=== PATIENT | male | born 1990 | race Caucasian/White ===

== ENCOUNTER 2016-07-21 17:57 | Emergency (ER) | payer OTHER ==
[~2016-07-21] VITALS: Ht 170.2 cm; Wt 71.0 kg
[~2016-07-21 17:57] MED LIST: CLONIDINE HCL0.1 MG PO; FLEXERIL10 MG PO; NAPROXEN500 MG PO; NOHOMEMEDS; TRAZODONE HCL50 MG PO
[2016-07-21 18:53] LABS: HEMATOCRIT 46.9 % (38.0-50.0); MCH 30.7 PG (29.0-34.0); MCHC 34.5 G/DL (30.0-36.0); MEAN PLAT.VOLUME 9.5 uM^3 (9.0-12.4); PLATELET COUNT 296 K/uL (156-360); RBC DIS.WIDTH-SD 42.4 % (39-53); RED BLOOD COUNT 5.27 M/uL (4.00-5.50); WHITE BLOOD COUNT 13.2 K/uL (4.1-10.2)
[2016-07-21 19:04] LABS: CHLORIDE 109 mEq/L (99-109); POTASSIUM 4.2 mEq/L (3.7-5.4); SODIUM 139 mEq/L (136-147)
[2016-07-21 19:06] LABS: GLUCOSE 164 mg/dL (70-99)
[2016-07-21 19:08] LABS: ANION GAP 10 MEQ/L (2-14)
[2016-07-21 19:09] LABS: SERUM ETHYL ALCOHOL < 10 mg/dL
[2016-07-21 19:10] LABS: GFR ESTIMATE (CALCULATED) > 59 mL/min/
[2016-07-21 19:12] LABS: UREA NITROGEN (BUN) 12 mg/dL (9-23)
[2016-07-21 19:13] LABS: SALICYLATE < 5.0 MG/DL (15-30)
[2016-07-21] MEDS ORDERED: NARCAN4 MG NS (19:30)
[2016-07-21 21:43] LABS: ADD MEDTOX COMMENT Y; AMPHETAMINE NEGATIVE (500 ng/mL); BARBITURATES NEGATIVE (200 ng/mL); BENZODIAZEPINES NEGATIVE (150 ng/mL); COCAINE NEGATIVE (150 ng/mL); INTERNAL CONTROLS VALID? YES; METHADONE NEGATIVE (200 ng/mL); METHAMPHETAMINE NEGATIVE (500 ng/mL); OPIATES (MORPHINE) PRESUMPTIVE POSITIVE (100 ng/mL); OXYCODONE NEGATIVE (100 ng/mL); PHENCYCLIDINE NEGATIVE (25 ng/mL); PROPOXYPHENE NEGATIVE (300 ng/mL); THC CANNABINOIDS PRESUMPTIVE POSITIVE (50 ng/mL); TRICYCLIC ANTIDEPRESSANTS NEGATIVE (300 ng/mL)
[2016-07-21 21:58] VITALS: BP 117/74
[2016-07-21 22:13] LABS: MARIJUANA QUANT VALUE 0 NG/ML
== END 2016-07-21 22:00 | disposition home or self-care (01) ==
LOC: EME 17:57
PROVIDERS: Physician Assistant Medical
DX: T40.1X1A Poisoning by heroin, accidental (unintentional), initial encounter (principal); F11.20 Opioid dependence, uncomplicated; F11.24 Opioid dependence with opioid-induced mood disorder; F17.200 Nicotine dependence, unspecified, uncomplicated; Z88.2 Allergy status to sulfonamides
CPT/HCPCS: 80048; 84999; 85027; 90837; 99281; 99285; G0480

== ENCOUNTER 2016-09-16 20:32 | Emergency (ER) | payer OTHER ==
[~2016-09-16] VITALS: Ht 170.2 cm; Wt 76.3 kg
[~2016-09-16 20:32] MED LIST changes: +NARCAN4 MG NS
[2016-09-17 00:24] LABS: MCH 30.2 PG (29.0-34.0); MCHC 33.1 G/DL (30.0-36.0); MCV 91.3 FL (86-99); MEAN PLAT.VOLUME 8.8 uM^3 (9.0-12.4); PLATELET COUNT 262 K/uL (156-360); RBC DIS.WIDTH-CV 13.1 % (11.8-14.6); RBC DIS.WIDTH-SD 43.9 % (39-53); WHITE BLOOD COUNT 8.6 K/uL (4.1-10.2)
[2016-09-17 00:32] LABS: CHLORIDE 106 mEq/L (99-109); POTASSIUM 4.4 mEq/L (3.7-5.4); SODIUM 141 mEq/L (136-147)
[2016-09-17 00:34] LABS: GLUCOSE 93 mg/dL (70-99)
[2016-09-17 00:35] LABS: ANION GAP 11 MEQ/L (2-14)
[2016-09-17 00:38] LABS: GFR ESTIMATE (CALCULATED) > 59 mL/min/
[2016-09-17 00:39] LABS: UREA NITROGEN (BUN) 13 mg/dL (9-23)
[2016-09-17] MEDS ORDERED: NORCO 5/3251 TABLET PO (01:19)
[2016-09-17] MEDS ORDERED: PEN-VEE K,VEET500 MG PO (01:19)
[2016-09-17 01:49] VITALS: BP 124/67
== END 2016-09-17 01:51 | disposition home or self-care (01) ==
LOC: EME 20:32
PROVIDERS: Nurse Practitioner Family
DX: K02.9 Dental caries, unspecified (principal); N50.811 Right testicular pain; N50.82 Scrotal pain; F17.200 Nicotine dependence, unspecified, uncomplicated
CPT/HCPCS: 72193; 76870; 80048; 85027; 99281; 99284; J1885; J7030

== ENCOUNTER 2016-10-26 03:35 | Emergency (ER) | payer OTHER ==
[~2016-10-26] VITALS: Ht 170.2 cm; Wt 83.1 kg
[~2016-10-26 03:35] MED LIST changes: +NORCO 5/3251 TABLET PO; +PEN-VEE K,VEET500 MG PO
[2016-10-26 05:40] VITALS: BP 113/62
== END 2016-10-26 05:55 ==
LOC: EME → EDBD 03:35 → EME 03:35
DX: T40.1X4A Poisoning by heroin, undetermined, initial encounter (principal); R09.02 Hypoxemia; R11.0 Nausea; F11.10 Opioid abuse, uncomplicated; F32.9 Major depressive disorder, single episode, unspecified; F90.9 Attention-deficit hyperactivity disorder, unspecified type; F17.200 Nicotine dependence, unspecified, uncomplicated
CPT/HCPCS: 99281; 99285; J2310; J2405

== ENCOUNTER 2017-04-14 14:46 | Emergency (ER) | payer OTHER ==
[~2017-04-14] VITALS: Ht 175.3 cm; Wt 70.6 kg
[2017-04-14 16:46] LABS: ADD MIUA? YES; BILIRUBIN NEGATIVE; BLOOD NEGATIVE; COLOR YELLOW ((YELLOW)); GLUCOSE (STRIP) NEGATIVE; KETONES NEGATIVE; LEUKOCYTES NEGATIVE; NITRITE NEGATIVE; PROTEIN (STRIP) 30
[2017-04-14] MEDS ORDERED: NARCAN4 MG NS (16:50)
[2017-04-14 16:51] LABS: HEMATOCRIT 44.6 % (38.0-50.0); MCH 30.2 PG (29.0-34.0); MCHC 33.4 G/DL (30.0-36.0); MCV 90.3 FL (86-99); MEAN PLAT.VOLUME 9.4 uM^3 (9.0-12.4); PLATELET COUNT 233 K/uL (156-360); RBC DIS.WIDTH-CV 12.7 % (11.8-14.6); RBC DIS.WIDTH-SD 42.2 % (39-53); RED BLOOD COUNT 4.94 M/uL (4.00-5.50); WHITE BLOOD COUNT 14.6 K/uL (4.1-10.2)
[2017-04-14 16:52] LABS: BACTERIA RARE /HPF; EPITHELIAL CELLS RARE /HPF; HYALINE CASTS 0-5 /LPF; MUCUS TRACE /LPF; RED BLOOD CELLS 0-5 /HPF (0-5); WHITE BLOOD CELLS 0-5 /HPF (0-5)
[2017-04-14 16:57] LABS: AMPHETAMINE NEGATIVE (500 ng/mL); BARBITURATES NEGATIVE (200 ng/mL); BENZODIAZEPINES NEGATIVE (150 ng/mL); COCAINE NEGATIVE (150 ng/mL); INTERNAL CONTROLS VALID? YES; METHADONE NEGATIVE (200 ng/mL); METHAMPHETAMINE NEGATIVE (500 ng/mL); OPIATES (MORPHINE) PRESUMPTIVE POSITIVE (100 ng/mL); OXYCODONE NEGATIVE (100 ng/mL); PHENCYCLIDINE NEGATIVE (25 ng/mL); PROPOXYPHENE NEGATIVE (300 ng/mL); THC CANNABINOIDS NEGATIVE (50 ng/mL); TRICYCLIC ANTIDEPRESSANTS NEGATIVE (300 ng/mL)
[2017-04-14 16:58] LABS: ADD MEDTOX COMMENT Y
[2017-04-14 17:01] LABS: CHLORIDE 108 mEq/L (99-109); POTASSIUM 4.1 mEq/L (3.7-5.4); SODIUM 141 mEq/L (136-147)
[2017-04-14 17:03] LABS: GLUCOSE 120 mg/dL (70-99)
[2017-04-14 17:05] LABS: ANION GAP 9 MEQ/L (2-14); TOTAL BILIRUBIN 0.2 mg/dL (0.0-1.0)
[2017-04-14 17:06] LABS: SERUM ETHYL ALCOHOL < 10 mg/dL
[2017-04-14 17:07] LABS: ALKALINE PHOSPHATASE 82 IU/L (3-129); GFR ESTIMATE (CALCULATED) > 59 mL/min/
[2017-04-14 17:08] LABS: UREA NITROGEN (BUN) 10 mg/dL (9-23)
[2017-04-14 17:43] VITALS: BP 113/84
== END 2017-04-14 17:46 | disposition home or self-care (01) ==
LOC: EME 14:46
PROVIDERS: Emergency Medicine
DX: T40.1X1A Poisoning by heroin, accidental (unintentional), initial encounter (principal); F11.20 Opioid dependence, uncomplicated; F32.9 Major depressive disorder, single episode, unspecified; B19.20 Unspecified viral hepatitis C without hepatic coma; F90.9 Attention-deficit hyperactivity disorder, unspecified type; F17.200 Nicotine dependence, unspecified, uncomplicated; Z88.2 Allergy status to sulfonamides
CPT/HCPCS: 80053; 81003; 84999; 85027; 90839; 93005; 99281; 99285; G0480; J2310